=== PATIENT | male | born 1965 | race Asian ===

== ENCOUNTER 2022-02-04 06:00 | Day surgery (SDC) | payer MEDICAID ==
[~2022-02-04] VITALS: Ht 177.8 cm; Wt 73.5 kg
[2022-02-04] MEDS ORDERED: SIMETHICONE 40 MG/0.6 ML ML ONE (06:49)
[2022-02-04] MEDS ORDERED: MIDAZOLAM HCL 5 MG/5 ML VIAL ONE (06:50)
[2022-02-04] MEDS ORDERED: MEPERIDINE 100 MG INJ. 100 MG/ML VIAL ONE (06:50)
[2022-02-04 17:52] VITALS: BP_SYST 127
== END 2022-02-04 09:05 | disposition home or self-care (01) ==
LOC: SDS 06:00 → EDSEX 07:00 → SDS 09:05 → SMU 09:07 → SDS 09:08
PROVIDERS: ATTEND Internal Medicine Gastroenterology
DX: Z12.11 Encounter for screening for malignant neoplasm of colon (principal); D12.4 Benign neoplasm of descending colon; K64.8 Other hemorrhoids; Z86.010 Personal history of colon polyps; Z79.899 Other long term (current) drug therapy; Z20.822 Contact with and (suspected) exposure to COVID-19
CPT/HCPCS: 36415; 45380; 82962; 88305; 99152; U0003; G0378; J2250; J2175